=== PATIENT | female | born 1955 | race African-American/Black ===

== ENCOUNTER 2024-06-01 07:16 | Emergency (ER) | payer MEDICARE, MEDICAID ==
[2024-06-01] MEDS ORDERED: Morphine 4 MG/ML VIAL ONE (07:43)
[2024-06-01] MEDS ORDERED: Vancomycin 1 GM VIAL ONE (07:43)
[2024-06-01] MEDS ORDERED: Ondansetron PF 4 MG/2 ML Vial ONE (07:43)
[2024-06-01] MEDS ORDERED: Cefepime 2 GM VIAL ONE (07:44)
[2024-06-01] MEDS ORDERED: Sodium Chloride 0.9% 100 ML ONE (07:45)
[2024-06-01 07:56] LABS: Hematocrit 26.5 % (36.0-47.0); Hemoglobin 7.6 g/dL (12.0-16.0); Mean Corpuscular HGB CONC 28.5 g/dL (32.0-36.0); Mean Corpuscular Hemoglobin 24.5 pg (27.0-31.0); Mean Corpuscular Volume 86.1 fl (78.0-98.0); Mean Platelet Volume 5.6 fL (7.4-10.4); Platelet Count 610 10x3/uL (130-400); RBC Distribution Width 26.2 % (11.5-14.5); Red Blood Cell (RBC) Count 3.08 mill/uL (4.20-5.40)
[2024-06-01 08:02] LABS: Bilirubin Negative (Negative); Blood, Urine Large (Negative); Clarity Turbid (Clear); Glucose, Urine (Dipstick) Negative (Negative); Ketone, Urine Trace mg/dL (Negative); Leukocyte Large (Negative); Nitrite Negative (Negative); Protein, Urine (Dipstick) 100 mg/dL (Neg-Trace); Urobilinogen 0.2 mg/dL (Less than 2)
[2024-06-01 08:04] LABS: Specific Gravity, Urine 1.018 (1.002-1.036)
[2024-06-01 08:17] LABS: ALT (SGPT) 9 U/L (8-55); AST (SGOT) 21 U/L (5-34); Albumin 1.9 g/dL (3.4-4.8); Alkaline Phosphatase 180 U/L (40-110); Anisocytosis SLIGHT = 6-15 cells (100X) (0-5/hpf); BUN (Urea Nitrogen) 43 mg/dL (9.8-20.1); Band 4 % (5-11); Bilirubin, Total 0.3 mg/dL (0.2-1.2); Calc. Creatinine Clearance 0 mL/min (70-130); Calcium 8.4 mg/dL (7.8-10.44); Chloride 117 mmol/L (98-107); Estimated GFR 15; Globulin 6.2 g/dL (2.4-3.5); Glucose 162 mg/dL (80-115); Hypochromia SLIGHT = 6-15 cells (100X) (0-5/hpf); Lymphocytes 6 % (21-51); MDiff Complete? YES; Microcytosis SLIGHT = 6-15 cells (100X) (0-5/hpf); Monocytes 3 % (0-10); Neutrophil 86 % (42-75); Nucleated RBC (Manual Ct) 1 % (0); Platelet Adequacy Comment Appears Increased; Potassium 4.9 mmol/L (3.5-5.1); Protein, Total 8.1 g/dL (5.8-8.1); Small Platelets SLIGHT HPF (0-15); Sodium 139 mmol/L (136-145)
[2024-06-01 08:19] LABS: Carbon Dioxide Less than 8 mmol/L (23-31)
[2024-06-01 08:24] LABS: Bacteria/HPF 4+ HPF (None Seen); CAUTI Indications for Culture Pelvic or flank pain; RBC/HPF Greater than 50 HPF (0-3); WBC/HPF Greater than 50 HPF (0-3)
[2024-06-01 08:26] LABS: Urine Culture Reflex Yes Yes
[2024-06-01 10:38] LABS: Acetaminophen Less than 10 mcg/mL (Less than 10); Alcohol Less than 10.0 mg/dL (Less than 10); Salicylate Less than 8.0 mg/dL (Less than 8.0)
[2024-06-01 11:07] LABS: INR-International Normal Ratio 1.3; PTT 36.3 sec (22.9-36.1); Prothrombin Time 16.2 sec (12.0-14.7)
== END 2024-06-01 14:10 | disposition short-term general hospital (02) ==
LOC: BURERS 07:16
DX: T39.1X1A Poisoning by 4-Aminophenol derivatives, accidental (unintentional), initial encounter (principal); A41.9 Sepsis, unspecified organism; L89.156 Pressure-induced deep tissue damage of sacral region; N17.9 Acute kidney failure, unspecified; D64.9 Anemia, unspecified; K85.90 Acute pancreatitis without necrosis or infection, unspecified; N39.0 Urinary tract infection, site not specified; G82.20 Paraplegia, unspecified; I10 Essential (primary) hypertension; Z55.6 Problems related to health literacy
CPT/HCPCS: 74176; 80053; 80307; 81001; 83605; 83690; 85025; 85610; 85730; 87040; 87077; 87086; 87428; 93005; 96361; 96365; 96367; 96375; 99285; J0692; J2272; J2405; J3370; 36415; 87186